=== PATIENT | female | born 1995 | race Caucasian/White ===

== ENCOUNTER 2020-08-26 19:51 | Observation (INO) | payer OTHER, SELFPAY ==
[2020-08-26] VITALS (8 sets, daily range): BP systolic 114–128; BP diastolic 55–89; PULSE 102–127; RESP 15–18; TEMP 36.6; O2SAT 98–100; BMI 21.2
--- NOTE | 2020-08-26 19:53 | USR_ITS ---
PROCEDURE INFORMATION: Exam: US , Limited Exam date and time: 08/26/2020 8:47 PM Age: 25 years old Clinical indication: complicated by abdominal or pelvic pain; Right lower quadrant; Second trimester; Gestational age or lmp: 15 w 0d; ; Additional info: Vag bleeding with TECHNIQUE: Imaging protocol: Real-time ultrasound of the maternal uterus with image documentation. Exam focused on the clinical indication. COMPARISON: No relevant prior studies available. FINDINGS: Gestation: Single live intrauterine gestation. heart rate: 171 bpm Presentation: Breech presentation. Placenta: Posterior placenta. Marginal placenta versus complete previa, suboptimally visualized. BIOMETRY: Gestational age (AUA): 15 weeks 0 days Estimated due date (AUA): 02/17/2021 (compares with 02/24/2021 based on LMP) Estimated weight: 113 g (weight percentile for gestational age not calculated) Biparietal diameter: 15 weeks 1 day Head circumference: 15 weeks 0 days Abdominal circumference: 15 weeks 0 days Femur length: 15 weeks 0 days MATERNAL: Cervix: Cervix is long and closed. Urinary bladder: The maternal bladder is unremarkable. US/US OB limited [id number] IMPRESSION: 1. Single live intrauterine . No acute complications. 2. Posterior marginal placenta versus placenta previa. Recommend attention to this finding on follow-up imaging.
--- NOTE | 2020-08-26 20:13 | USR_ITS ---
PROCEDURE INFORMATION: Exam: US Abdomen, Limited; Right Upper Quadrant Exam date and time: 08/26/2020 8:44 PM Age: 25 years old Clinical indication: Abdominal pain; Acute; ; Additional info: Rlq ruq pain, appy vs gb TECHNIQUE: Imaging protocol: US abdomen. Real time ultrasound with image documentation. Limited exam focused on the right upper quadrant. COMPARISON: No relevant prior studies available. FINDINGS: Liver: The liver parenchyma is unremarkable. Gallbladder: The gallbladder is normal. There are no stones. There is no wall thickening or pericholecystic fluid. Sonographic Haynes sign is negative. Common bile duct: The common bile duct is not identified. There is a duct measured on series 1, image 33 which is likely an intrahepatic duct. Pancreas: The visible portion of the pancreas is unremarkable. Right kidney: The right kidney is unremarkable. Aorta: The upper abdominal aorta is unremarkable. Portal venous: The portal vein is patent. US/US abdomen limited [id number] IMPRESSION: No cholelithiasis or evidence of cholecystitis.
[2020-08-26] MEDS: morphine 4 mg/mL SDV 1 mL 2 MG IVP (20:17)
[2020-08-26 20:19] LABS: Basophils # 0.1 10^3/uL (0.0-0.1); Basophils % 0.4 %; Eosinophils # 0.7 10^3/uL (0.0-0.8); Hematocrit 38.9 % (37.0-47.0); Hemoglobin 13.6 g/dL (11.5-15.3); Lymphocytes # 1.2 10^3/uL (0.8-4.8); Mean Corpuscular Hemoglobin 32.2 pg (28.0-34.0); Mean Corpuscular Volume 92.2 fL (81-99); Mean Platelet Volume 9.5 fL (7.4-10.4); Monocytes % 5.7 %; Neutrophils # 13.86 10^3/uL (1.8-7.7); Neutrophils % 82.5 %; Nucleated Red Blood Cells % 0 %; Platelet Count 267 10^3/cmm (130-400); Red Blood Count 4.22 10^6/uL (4.1-5.3); Red Cell Distribution Width 11.9 % (12.1-15.1); White Blood Count 16.8 10^3/uL (4.0-10.0)
[2020-08-26] MEDS: sodium chloride 0.9% 500 ML 999 ML IV (20:21)
--- NOTE | 2020-08-26 20:24 | ED_ITS ---
Documented by User: ALLAN Parada 08/27/20 02:42 HPI - Abdominal Pain General: Chief Complaint: Abdominal Pain Stated Complaint: 14wks preg. severe cramping Time Seen by Provider: 08/26/20 20:10 Source: patient Mode of arrival: wheelchair Limitations: no limitations History of Present Illness: HPI narrative: 25-year-old female patient who is from [place] here visiting family presents to the emergency department with 2- day onset of abdominal pain. She reports pain to the right lower quadrant and right upper quadrant, worse with movement. She reports hemorrhoid development has experienced some pain but abdominal pain is new. Denies vaginal bleeding, currently 14 weeks . Cared for by her [facility] in [facility] ([place], [place]). 1 para 0 AB 0, denies current problems with current . Has experienced several occasions of nausea and vomiting but considers it not bothersome. Denies history of diabetes hypertension. Last menstrual period 04/24/2020. Family h/o appendicitis, brother. MD elicited complaint: abdominal pain and flank pain Onset (ago): day(s) (2) Pain Consistency: intermittent Location: RUQ and RLQ Severity: moderate Pain scale (0-10): 6 Quality: aching and dull Radiation: RUQ, RLQ and suprapubic Exacerbating factors: movement Relieving factors: rest Associated Symptoms: Reports chills, nausea and vomiting; Denies constipation, dysuria, fever(s), hematochezia and hematemesis Review of Systems General: Reports: 10 or more systems reviewed and unremarkable except in HPI and below Const: Reports: chills; Denies: fever(s), body aches, fatigue or malaise Eyes: Denies: change in vision, blurry vision, eye discharge or eye redness ENMT: Denies: throat pain, dental pain, disequilibrium, nasal discharge, nasal congestion or nasal obstruction Card: Denies: chest pain, palpitations, irregular heart rhythm, dyspnea on exertion or orthopnea Resp: Denies: dyspnea, productive cough, non-productive cough, wheezing, hemoptysis or chest congestion GI: Reports: abdominal pain, nausea, vomiting and rectal pain (Due to hemorrhoid); Denies: hematemesis, constipation, pain on defecation or hematochezia : Denies: difficulty voiding, dysuria, urinary urgency, nocturia, oliguria or urinary incontinence Musc: Denies: neck pain, back pain, muscle cramps or muscle weakness Skin/Breast: Denies: rash, pruritus, erythema, changing lesions or changes in skin color Neuro: Reports: difficulty walking (due to abdominal pain); Denies: headache(s), numbness in extremities, weakness in extremities, vertigo or behavioral changes Psych: Denies: anxiety or depression Gabo/Lymph: Denies: easy bruising Physical Exam Const: COMMON NORMALS: no acute distress, patient oriented x3, healthy appearing and alert GENERAL APPEARANCE: cooperative, comfortable and well hydrated HENMT: COMMON NORMALS: normocephalic, Normal external nose present and moist oral mucous membranes HEAD & SCALP: normocephalic NOSE: Normal external nose present Eye: COMMON NORMALS: Equal, round and reactive pupils present and EOMs intact bilaterally GENERAL EYE: appearance normal, both eyes and all related structures PUPIL: Yes Equal, round and reactive pupils present Neck/C-Spine: COMMON NORMALS: full ROM and no lymphadenopathy GENERAL: Yes normal visual inspection and Yes trachea midline CERVICAL SPINE: Yes cervical ROM normal Lymph: LYMPHATIC: no lymphadenopathy noted Chest: COMMONS NORMALS: normal inspection of the chest Resp: COMMON NORMALS: normal respiratory effort and clear to auscultation bilaterally AUSCULTATION: clear to auscultation bilaterally Cardio: COMMON NORMALS: regular rhythm, S1 normal heart sound present and S2 normal heart sound present RHYTHM: regular rhythm HEART SOUNDS: S1 normal heart sound present and S2 normal heart sound present GI: COMMON NORMALS: Normal to inspection, nondistended, normoactive bowel sounds present and Soft to palpation INSPECTION: Yes normal to inspection, No abdominal wall ecchymosis, No abdominal distension, No visible herniation, No Laceration(s) present (GI), Yes gravid abdomen and Yes other (+ Psoas sign) PALPATION: Yes Soft to palpation and Yes Rebound tenderness present Details: McB urney's point, suprapubic and other (+ Haynes's) RECTAL EXAM: normal sphincter tone, External hemorrhoid(s) present (12 o'clock), no fissure noted, no laceration(s) noted and tenderness : COMMON NORMALS: Yes normal external appearance, Yes normal appearance of the vagina and Yes normal appearance of the cervix EXTERNAL FEMALE EXAM: Yes normal appearance of the urethra, No urethral discharge and No lesion SPECULUM EXAM - VAGINA: No erythematous, No lesion and Yes Vaginal discharge present Vaginal discharge present: white and yellow SPECULUM EXAM - CERVIX: Yes Cervical os closed, Yes Abnormal cervical discharge present and Yes Cervical tenderness present BIMANUAL EXAM - VAGINA & UTERUS: Yes Cervical tenderness present, Yes consistency normal and Yes enlarged BIMANUAL EXAM - ADNEXA, OTHER: Yes normal, No tender and Yes cul-de-sac tenderness RECTO-VAGINAL: cul-de-sac tenderness Back/Pelvis: COMMON NORMALS: thoracic and lumbar spine normal to inspection, no thoracic nor lumbar tenderness, thoraco-lumbar ROM normal and straight leg raise negative bilaterally GENERAL BACK: Yes CVA tenderness CVA tenderness: right Extremity: COMMON NORMALS: normal to inspection and capillary refill normal Neuro: COMMON NORMALS: patient oriented x3 and no focal motor deficits SENSORIUM/ORIENTATION: Yes alert Psych: COMMON NORMALS: mental status grossly normal, Normal thought process present and cooperative ACTIVITY/MOTOR BEHAVIOR: Yes appropriate eye contact THOUGHT PROCESS: Normal thought process present Skin: COMMON NORMALS: no rashes or lesions noted and turgor normal GENERAL SKIN EXAM: no rashes or lesions noted and turgor normal Course ED course: 25-year-old female patient presents to the emergency department with acute nausea vomiting, abdominal pain localized to the right side x2 days. Under the care of obstetrical services in [place]. She is currently here visiting relatives. White blood count elevated, 16.9 thousand, initial urinalysis with contamination, cath UA without UTI findings. Abdominal ultrasound negative for pyelonephritis, cholecystitis or other acute findings, appendix was not v isualized secondary to status. OB ultrasound with viable , 15 weeks, cervix closed. No vaginal bleeding, she is Rh-. Hypokalemia noted and treated significantly dehydrated with difficulty obtaining repeat urinalysis due to decreased urine output. Nausea improved with use of Zofran, morphine did improve pain. I discussed with patient and her spouse my conversation with Dr. Avila, she agrees with MRI abdomen and pelvis to rule out appendicitis as her brother was significantly ill during appendicitis episode. She also agrees to admission due to dehydration and pain control. Consultations: Consultation #1: Dr Avila, discussed with Dr. French unable to rule out appendicitis. Ultrasound abdomen without pyelonephritis, cholecystitis or other acute findings. Appendix was not visualized, OB ultrasound normal. Cervix closed. Patient dehydrated, continues with nausea with right lower quadrant pain. Agrees to admit for hydration and pain control, advised need for MRI abdomen and pelvis to rule out appendicitis, consult general surgery, consult hospitalist. Agrees to see patient in the morning. Time: 02:30 Vital Signs: Vital signs: Vital Signs Temperature 97.8 F 08/26/20 19:55 Pulse Rate 85 08/27/20 05:29 Respiratory Rate 17 08/27/20 05:53 Blood Pressure 103/61 08/27/20 05:29 Pulse Oximetry 98 08/27/20 05:53 MDM - Abdominal Pain Lab Data: Labs: Lab Results 08/26/20 08/26/20 08/26/20 Range/Units 20:10 20:10 20:10 WBC 16.8 H (4.0-10.0) 10^3/ uL RBC 4.22 (4.1-5.3) 10^6/u L Hgb 13.6 (11.5-15.3) g/dL Hct 38.9 (37.0-47.0) % MCV 92.2 (81-99) fL MCH 32.2 (28.0-34.0) pg MCHC 35.0 (30.0-36.0) g/dL RDW 11.9 L (12.1-15.1) % Plt Count 267 (130-400) 10^3/c mm MPV 9.5 (7.4-10.4) fL Neut % (Auto) 82.5 % Lymph % (Auto) 7.0 % [place] % (Auto) 5.7 % Eos % (Auto) 4.0 % Baso % (Auto) 0.4 % Neut # (Auto) 13.86 H (1.8-7.7) 10^3/u L Lymph # (Auto) 1.2 (0.8-4.8) 10^3/u L [place] # (Auto) 1.0 H (0.2-0.9) 10^3/u L Eos # (Auto) 0.7 (0.0-0.8) 10^3/u L Baso # (Auto) 0.1 (0.0-0.1) 10^3/u L Nucleated RBC % (a uto) 0 % Nucleated RBCs # 0.0 /100WBC Sodium 134 L (136-145) mmol/L Potassium 3.1 L (3.5-5.1) mmol/L Chloride 101 (98-107) mmol/L Carbon Dioxide 20 L (22-29) mmol/L Anion Gap 16.1 (5-19) BUN 7 (6-20) mg/dL Creatinine 0.4 L (0.5-0.9) mg/dL GFR Calculation 192.9 H (90-130) mL/min Glucose 102 (65-115) mg/dL Calculated Osmolal ity 276 L (285-295) mOsm/k g Calcium 9.8 (8.5-10.5) mg/dL Total Bilirubin 0.9 (0.15-1.2) mg/dL AST 27 (0-32) U/L ALT 29 (0-33) U/L Alkaline Phosphata se 94 (35-105) IU/L Total Protein 7.5 (6.6-8.7) g/dL Albumin 3.8 (3.5-5.2) g/dL Globulin 3.7 (1.3-4.6) g/dL Lipase 19 (13-60) U/L Ser , Renata [place]-Qnt 96485.00 mIU/mL Urine Color Urine Appearance Urine pH Ur Specific Gravit y Urine Protein Urine Glucose (UA) Urine Ketones Urine Blood Urine Nitrate Urine Bilirubin Prot Sulfosalicyli c Acd Urine Urobilinogen Ur Leukocyte Aviva ase Urine RBC Urine WBC Ur Squamous Epith Cells Ur Transition Epit h Cell Ur Renal Epithelia l Cell Calcium Oxalate Cr ystal Uric Acid Crystals Triple Phos Juliana ls Other Crystals Amorphous Sediment Urine Bacteria Hyaline Casts Fine Granular Cast s Coarse Granular Ca sts RBC Casts Other Casts Urine Mucus Urine Trichomonas Urine Yeast Urine Sperm Ur Oval Fat Bodies Serum Ketones Negative (Negative) Blood Type Rho(D) Type 08/26/20 08/26/20 08/27/20 Range/Units 20:30 20:48 01:41 WBC (4.0-10.0) 10^3/ uL RBC (4.1-5.3) 10^6/u L Hgb (11.5-15.3) g/dL Hct (37.0-47.0) % MCV (81-99) fL MCH (28.0-34.0) pg MCHC (30.0-36.0) g/dL RDW (12.1-15.1) % Plt Count (130-400) 10^3/c mm MPV (7.4-10.4) fL Neut % (Auto) % Lymph % (Auto) % [place] % (Auto) % Eos % (Auto) % Baso % (Auto) % Neut # (Auto) (1.8-7.7) 10^3/u L Lymph # (Auto) (0.8-4.8) 10^3/u L [place] # (Auto) (0.2-0.9) 10^3/u L Eos # (Auto) (0.0-0.8) 10^3/u L Baso # (Auto) (0.0-0.1) 10^3/u L Nucleated RBC % (a uto) % Nucleated RBCs # /100WBC Sodium (136-145) mmol/L Potassium (3.5-5.1) mmol/L Chloride (98-107) mmol/L Carbon Dioxide (22-29) mmol/L Anion Gap (5-19) BUN (6-20) mg/dL Creatinine (0.5-0.9) mg/dL GFR Calculation (90-130) mL/min Glucose (65-115) mg/dL Calculated Osmolal ity (285-295) mOsm/k g Calcium (8.5-10.5) mg/dL Total Bilirubin (0.15-1.2) mg/dL AST (0-32) U/L ALT (0-33) U/L Alkaline Phosphata se (35-105) IU/L Total Protein (6.6-8.7) g/dL Albumin (3.5-5.2) g/dL Globulin (1.3-4.6) g/dL Lipase (13-60) U/L Ser , Renata i-Qnt mIU/mL Urine Color Cancelled Yellow Urine Appearance Cancelled Clear Urine pH Cancelled 5 Ur Specific Gravit y Cancelled 1.015 Urine Protein Cancelled Neg Urine Glucose (UA) Cancelled Norm Urine Ketones Cancelled 1+ H Urine Blood Cancelled 2+ H Urine Nitrate Cancelled Negative Urine Bilirubin Cancelled Neg Prot Sulfosalicyli c Acd Cancelled Urine Urobilinogen Cancelled Norm Ur Leukocyte Aviva ase Cancelled Negative Urine RBC Cancelled 0-4 H Urine WBC Cancelled 0-4 H Ur Squamous Epith Cells Cancelled 15-25 H Ur Transition Epit h Cell Cancelled Ur Renal Epithelia l Cell Cancelled Calcium Oxalate Cr ystal Cancelled Uric Acid Crystals Cancelled Triple Phos Juliana ls Cancelled Other Crystals Cancelled Amorphous Sediment Cancelled Not Reportable Urine Bacteria Cancelled Trace Hyaline Casts Cancelled Fine Granular Cast s Cancelled Coarse Granular Ca sts Cancelled RBC Casts Cancelled Other Casts Cancelled Urine Mucus Cancelled 3+ Urine Trichomonas Cancelled Urine Yeast Cancelled Urine Sperm Cancelled Ur Oval Fat Bodies Cancelled Serum Ketones (Negative) Blood Type O Negative Rho(D) Type Negative Intrauterine present, approximately 14 weeks, Imaging Data ^: US OB: Radiologist's impression: [facility] [address] Ultrasound Report Signed Patient: Annie Watt Unit #: [id number] : 1995 Age/Sex: 25 / F ADM Date: 08/26/20 Loc: ER Room/Bed: Attending Dr: Ordering Provider/Ordering MD: Bri Beckford Date of Service: 08/26/20 Procedure(s): US OB limited [id number] Accession Number(s): [id number] Report Number: [id number] PROCEDURE INFORMATION: Exam: US , Limited Exam date and time: 08/26/2020 8:47 PM Age: 25 years old Clinical indication: complicated by abdominal or pelvic pain; Right lower quadrant; Second trimester; Gestational age or lmp: 15 w 0d; ; Additional info: Vag bleeding with TECHNIQUE: Imaging protocol: Real-time ultrasound of the maternal uterus with image documentation. Exam focused on the clinical indication. COMPARISON: No relevant prior studies available. FINDINGS: Gestation: Single live intrauterine gestation. heart rate: 171 bpm Presentation: Breech presentation. Placenta: Posterior placenta. Marginal placenta versus complete previa, suboptimally visualized. BIOMETRY: Gestational age (AUA): 15 weeks 0 days Estimated due date (AUA): 02/17/2021 (compares with 02/24/2021 based on LMP) Estimated weight: 113 g (weight percentile for gestational age not calculated) Biparietal diameter: 15 weeks 1 day Head circumference: 15 weeks 0 days Abdominal circumference: 15 weeks 0 days Femur length: 15 weeks 0 days MATERNAL: Cervix: Cervix is long and closed. Urinary bladder: The maternal bladder is unremarkable. US/US OB limited [id number] IMPRESSION: 1. Single live intrauterine . No acute complications. 2. Posterior marginal placenta versus placenta previa. Recommend attention to this finding on follow-up imaging. Dictated By: Clarence Lopez MD Signed By: Clarence Lopez MD Signed Date/Time: 08/26/202111 DD/ 11 US Vascular: Radiologist's impression: [address] [address] Ultrasound Report Signed Patient: Eva Watt #: [id number] : 1995Acct#:[id number] Age/Sex: 25 / FADM Date: 08/26/20 Loc: ERRoom/Bed: Attending Dr: Ordering Provider/Ordering MD: Bri Beckford Date of Service: 08/26/20 Procedure(s): US abdomen limited [id number] Accession Number(s): [id number] Report Number: [id number] PROCEDURE INFORMATION: Exam: US Abdomen, Limited; Right Upper Quadrant Exam date and time: 08/26/2020 8:44 PM Age: 25 years old Clinical indication: Abdominal pain; Acute; ; Additional info: Rlq ruq pain, appy vs gb TECHNIQUE: Imaging protocol: US abdomen. Real time ultrasound with image documentation. Limited exam focused on the right upper quadrant. COMPARISON: No relevant prior studies available. FINDINGS: Liver: The liver parenchyma is unremarkable. Gallbladder: The gallbladder is normal. There are no stones. There is no wall thickening or pericholecystic fluid. Sonographic Haynes sign is negative. Common bile duct: The common bile duct is not identified. There is a duct measured on series 1, image 33 which is likely an intrahepatic duct. Pancreas: The visible portion of the pancreas is unremarkable. Right kidney: The right kidney is unremarkable. Aorta: The upper abdominal aorta is unremarkable. Portal venous: The portal vein is patent. US/US abdomen limited [id number] IMPRESSION: No cholelithiasis or evidence of cholecystitis. Dictated By:Clarence Lopez MD Signed By:Clarence Lopez MDSigned Date/Time:08/26/202114 DD/ 14 Discharge Plan Discharge Patient Disposition: Placed in Observation Admit Provider: Da Avila Clinical Impression: Acute dehydration Abdominal pain Qualifiers: Abdominal location: right lower quadrant Qualified Code(s): R10.31 - Right lower quadrant pain Nausea and vomiting Qualifiers: Vomiting type: unspecified Vomiting Intractability: non-intractable Qualified Code(s): R11.2 - Nausea with vomiting, unspecified Sign Out Sign Out Data: Patient Sign Out occurred on 08/27/20 at 02:42. Patient's care was discussed, and care was transferred from ALLAN Parada to Sussy Jones. Sign Out Comment: MRI abdomen and pelvis pending, transfer of care due to end of shift, plan for admission due to dehydration and pain control due to abdominal pain, possible appendicitis. Last updated by Bri Beckford ARNP at 08/27/20 02:40 Coding Level of Care Code ED Store Management Trainee for Chg Fwd Exam Comprehensive Documented by User: Sussy Jones 08/27/20 06:03 HPI - Abdominal Pain General: Chief Complaint: Abdominal Pain Stated Complaint: 14wks preg. severe cramping Time Seen by Provider: 08/26/20 20:10 Course Vital Signs: Vital signs: Vital Signs Temperature 97.8 F 08/26/20 19:55 Pulse Rate 85 08/27/20 05:29 Respiratory Rate 17 08/27/20 05:53 Blood Pressure 103/61 08/27/20 05:29 Pulse Oximetry 98 08/27/20 05:53 MDM - Abdominal Pain MDM Narrative: Medical decision making narrative: 0325 -patient care turned over to me at change of shift from Bri Calabrese APN. Please see her note for history, physical exam and medical decision-making notes. Patient complains of nausea vomiting worse for the past 2 days in comparison to the earlier in her . Her abdominal pain began approximately 12 hours ago and she describes it as sharp, intermittent and lasting up to 30 seconds. She states she has had little pain since been giving pain medication here. She does state that movement makes her pain worse. Area located is in the mid to upper right side of her abdomen. Patient still does feel nauseated. Patient's white count is elevated and there is no evidence of UTI, cholecystitis or other problem. The case has been reviewed with Dr. Avila and he is agreeable to MRI and admission for observation with consultation by general surgery. Dr. Shetty notified of consultation. Patient will come back to the ER from MRI but shortly thereafter should go to the floor. Oncoming ER doctor will follow up on MRI results if not returned before I leave and they will be communicated to the general surgeon and Dr. Avila. Lab Data: Attestation: I reviewed the patient's lab results. Labs: Lab Results 08/26/20 08/26/20 08/26/20 Range/Units 20:10 20:10 20:10 WBC 16.8 H (4.0-10.0) 10^3/ uL RBC 4.22 (4.1-5.3) 10^6/u L Hgb 13.6 (11.5-15.3) g/dL Hct 38.9 (37.0-47.0) % MCV 92.2 (81-99) fL MCH 32.2 (28.0-34.0) pg MCHC 35.0 (30.0-36.0) g/dL RDW 11.9 L (12.1-15.1) % Plt Count 267 (130-400) 10^3/c mm MPV 9.5 (7.4-10.4) fL Neut % (Auto) 82.5 % Lymph % (Auto) 7.0 % [place] % (Auto) 5.7 % Eos % (Auto) 4.0 % Baso % (Auto) 0.4 % Neut # (Auto) 13.86 H (1.8-7.7) 10^3/u L Lymph # (Auto) 1.2 (0.8-4.8) 10^3/u L [place] # (Auto) 1.0 H (0.2-0.9) 10^3/u L Eos # (Auto) 0.7 (0.0-0.8) 10^3/u L Baso # (Auto) 0.1 (0.0-0.1) 10^3/u L Nucleated RBC % (a uto) 0 % Nucleated RBCs # 0.0 /100WBC Sodium 134 L (136-145) mmol/L Potassium 3.1 L (3.5-5.1) mmol/L Chloride 101 (98-107) mmol/L Carbon Dioxide 20 L (22-29) mmol/L Anion Gap 16.1 (5-19) BUN 7 (6-20) mg/dL Creatinine 0.4 L (0.5-0.9) mg/dL GFR Calculation 192.9 H (90-130) mL/min Glucose 102 (65-115) mg/dL Calculated Osmolal ity 276 L (285-295) mOsm/k g Calcium 9.8 (8.5-10.5) mg/dL Total Bilirubin 0.9 (0.15-1.2) mg/dL AST 27 (0-32) U/L ALT 29 (0-33) U/L Alkaline Phosphata se 94 (35-105) IU/L Total Protein 7.5 (6.6-8.7) g/dL Albumin 3.8 (3.5-5.2) g/dL Globulin 3.7 (1.3-4.6) g/dL Lipase 19 (13-60) U/L Ser , Renata i-Qnt 54359.00 mIU/mL Urine Color Urine Appearance Urine pH Ur Specific Gravit y Urine Protein Urine Glucose (UA) Urine Ketones Urine Blood Urine Nitrate Urine Bilirubin Prot Sulfosalicyli c Acd Urine Urobilinogen Ur Leukocyte Aviva ase Urine RBC Urine WBC Ur Squamous Epith Cells Ur Transition Epit h Cell Ur Renal Epithelia l Cell Calcium Oxalate Cr ystal Uric Acid Crystals Triple Phos Juliana ls Other Crystals Amorphous Sediment Urine Bacteria Hyaline Casts Fine Granular Cast s Coarse Granular Ca sts RBC Casts Other Casts Urine Mucus Urine Trichomonas Urine Yeast Urine Sperm Ur Oval Fat Bodies Serum Ketones Negative (Negative) Blood Type Rho(D) Type 08/26/20 08/26/20 08/27/20 Range/Units 20:30 20:48 01:41 WBC (4.0-10.0) 10^3/ uL RBC (4.1-5.3) 10^6/u L Hgb (11.5-15.3) g/dL Hct (37.0-47.0) % MCV (81-99) fL MCH (28.0-34.0) pg MCHC (30.0-36.0) g/dL RDW (12.1-15.1) % Plt Count (130-400) 10^3/c mm MPV (7.4-10.4) fL Neut % (Auto) % Lymph % (Auto) % [place] % (Auto) % Eos % (Auto) % Baso % (Auto) % Neut # (Auto) (1.8-7.7) 10^3/u L Lymph # (Auto) (0.8-4.8) 10^3/u L [place] # (Auto) (0.2-0.9) 10^3/u L Eos # (Auto) (0.0-0.8) 10^3/u L Baso # (Auto) (0.0-0.1) 10^3/u L Nucleated RBC % (a uto) % Nucleated RBCs # /100WBC Sodium (136-145) mmol/L Potassium (3.5-5.1) mmol/L Chloride (98-107) mmol/L Carbon Dioxide (22-29) mmol/L Anion Gap (5-19) BUN (6-20) mg/dL Creatinine (0.5-0.9) mg/dL GFR Calculation (90-130) mL/min Glucose (65-115) mg/dL Calculated Osmolal ity (285-295) mOsm/k g Calcium (8.5-10.5) mg/dL Total Bilirubin (0.15-1.2) mg/dL AST (0-32) U/L ALT (0-33) U/L Alkaline Phosphata se (35-105) IU/L Total Protein (6.6-8.7) g/dL Albumin (3.5-5.2) g/dL Globulin (1.3-4.6) g/dL Lipase (13-60) U/L Ser , Renata i-Qnt mIU/mL Urine Color Cancelled Yellow Urine Appearance Cancelled Clear Urine pH Cancelled 5 Ur Specific Gravit y Cancelled 1.015 Urine Protein Cancelled Neg Urine Glucose (UA) Cancelled Norm Urine Ketones Cancelled 1+ H Urine Blood Cancelled 2+ H Urine Nitrate Cancelled Negative Urine Bilirubin Cancelled Neg Prot Sulfosalicyli c Acd Cancelled Urine Urobilinogen Cancelled Norm Ur Leukocyte Aviva ase Cancelled Negative Urine RBC Cancelled 0-4 H Urine WBC Cancelled 0-4 H Ur Squamous Epith Cells Cancelled 15-25 H Ur Transition Epit h Cell Cancelled Ur Renal Epithelia l Cell Cancelled Calcium Oxalate Cr ystal Cancelled Uric Acid Crystals Cancelled Triple Phos Juliana ls Cancelled Other Crystals Cancelled Amorphous Sediment Cancelled Not Reportable Urine Bacteria Cancelled Trace Hyaline Casts Cancelled Fine Granular Cast s Cancelled Coarse Granular Ca sts Cancelled RBC Casts Cancelled Other Casts Cancelled Urine Mucus Cancelled 3+ Urine Trichomonas Cancelled Urine Yeast Cancelled Urine Sperm Cancelled Ur Oval Fat Bodies Cancelled Serum Ketones (Negative) Blood Type O Negative Rho(D) Type Negative Imaging Data ^: MR Abdomen/Pelvis: Radiologist's impression: [place] [address] Magnetic Resonance Report Signed Patient: Annie Watt Unit #: [id number] : 1995 Age/Sex: 25 / F ADM Date: 08/27/20 Loc: [facility] Room/Bed: [facility] Attending Dr: Da Avila MD Ordering Provider/Ordering MD: Bri Beckford Date of Service: 08/27/20 Procedure(s): MR abdomen [facility] [address] Accession Number(s): [id number] Report Number: [id number] PROCEDURE INFORMATION: Exam: MR Abdomen Without Contrast Exam date and time: 08/27/2020 2:26 AM Age: 25 years old Clinical indication: Abdominal pain; Acute; Additional info: Rlq pain, R/O appendicitis TECHNIQUE: Imaging protocol: MR of the abdomen without contrast. COMPARISON: US abdomen limited [id number] 08/26/2020 8:34 PM FINDINGS: Liver: No mass. Gallbladder and bile ducts: Unremarkable. No stones. No ductal dilation. Pancreas: Unremarkable. No ductal dilation. Spleen: Unremarkable. No splenomegaly. Adrenals: Unremarkable. No mass. Kidneys and ureters: Unremarkable. No solid mass. No hydronephrosis. Stomach and bowel: Visualized stomach and intestines are unremarkable. Appendix: The appendix is visualized and is normal in configuration. Intraperitoneal space: No free fluid. Arteries: No abdominal aortic aneurysm. Reproductive: The gravid uterus is seen. Bones/joints: Unremarkable. Soft tissues: Unremarkable. MR/MR abdomen wo con [id number] IMPRESSION: There are no acute abdominal findings. Dictated By: Rock Jaeger MD Signed By: Rock Jaeger MD Signed Date/Time: 08/27/20558 DD/ 7 Discharge Plan Discharge Patient Disposition: Placed in Observation Admit Provider: Da Avila Clinical Impression: Acute dehydration Abdominal pain Qualifiers: Abdominal location: right lower quadrant Qualified Code(s): R10.31 - Right lower quadrant pain Nausea and vomiting Qualifiers: Vomiting type: unspecified Vomiting Intractability: non-intractable Qualified Code(s): R11.2 - Nausea with vomiting, unspecified Sign Out Sign Out Data: Patient Sign Out occurred on 08/27/20 at 02:42. Patient's care was discussed, and care was transferred from ALLAN Parada to Sussy Jones. Sign Out Comment: MRI abdomen and pelvis pending, transfer of care due to end of shift, plan for admission due to dehydration and pain control due to abdominal pain, possible appendicitis. Last updated by Bri Beckford ARNP at 08/27/20 02:40 Coding Level of Care Code ED Store Management Trainee for [facility] Fwd Exam Comprehensive
[2020-08-26 21:00] LABS: Alanine Aminotransferase 29 U/L (0-33); Albumin Level 3.8 g/dL (3.5-5.2); Alkaline Phosphatase 94 IU/L (35-105); Anion Gap 16.1 (5-19); Aspartate Amino Transferase 27 U/L (0-32); Blood Urea Nitrogen 7 mg/dL (6-20); Calcium 9.8 mg/dL (8.5-10.5); Carbon Dioxide 20 mmol/L (22-29); Chloride 101 mmol/L (98-107); Globulin 3.7 g/dL (1.3-4.6); Glomerular Filtration Rate 192.9 mL/min (90-130); Glucose 102 mg/dL (65-115); Osmolality Calculated 276 mOsm/kg (285-295); Potassium 3.1 mmol/L (3.5-5.1); Sodium 134 mmol/L (136-145); Total Bilirubin 0.9 mg/dL (0.15-1.2); Total Protein 7.5 g/dL (6.6-8.7)
[2020-08-26] MEDS: ondansetron 2 mg/ML SDV 2 mL 4 MG IVP (21:04)
[2020-08-26] MEDS: morphine 4 mg/mL SDV 1 mL IVP (21:04)
[2020-08-26 21:05] LABS: Ketone (Acetest) Serum Negative (Negative)
[2020-08-26] MEDS: cefTRIAXone 1,000 MG in sodium chloride 0.9% (plus) 50 ML 100 MG IV (21:05)
[2020-08-26 21:14] LABS: Lipase 19 U/L (13-60)
[2020-08-26] MEDS: potassium chloride ER 20 mEq Tablet 40 MEQ PO (21:23)
[2020-08-26] MEDS: phenyleph-mineral oil-petrolat Oint 28 gm 1 APPLIC TOPICAL (23:57)
--- NOTE | 2020-08-26 23:59 | PC.NURSE ---
report given to anitha hackett
[2020-08-27] VITALS (13 sets, daily range): BP systolic 101–109; BP diastolic 58–67; PULSE 80–98; RESP 15–18; TEMP 36.7–36.8; O2SAT 98–99; BMI 21.2
[2020-08-27] MEDS: morphine 4 mg/mL SDV 1 mL IVP ×2 (00:40→05:53)
[2020-08-27] MEDS: sodium chloride 0.9% 1,000 ML 999 ML IV (00:41)
[2020-08-27 01:56] LABS: Glucose Urine UA Norm (Normal); Ketones Urine 1+ (Negative); Protein Urine Neg (Negative); Specific Gravity, Urine 1.015 (1.005-1.030); Urine Appearance Clear (CLEAR); Urine Color Yellow (Yellow); pH Urine 5 (5-7)
[2020-08-27 01:58] LABS: Bilirubin Urine Neg (Negative); Blood Urine 2+ (Negative); Leukocyte Esterase Urine Negative (Negative); Nitrate Urine Negative (Negative); Urobilinogen Urine Norm (Negative)
[2020-08-27 02:00] LABS: Add Urine Microscopic? YES
[2020-08-27 02:01] LABS: RBC Urine 0-4 /hpf (0-2); Squamous Epithelial Cell Urine 15-25 /hpf (0-5); WBC Urine 0-4 /hpf (0-5)
[2020-08-27 02:02] LABS: Add Urine Culture? No; Bacteria Urine TRACE /hpf; Mucus Urine 3+ /hpf
--- NOTE | 2020-08-27 02:25 | MRR_ITS ---
PROCEDURE INFORMATION: Exam: MR Abdomen Without Contrast Exam date and time: 08/27/2020 2:26 AM Age: 25 years old Clinical indication: Abdominal pain; Acute; Additional info: Rlq pain, R/O appendicitis TECHNIQUE: Imaging protocol: MR of the abdomen without contrast. COMPARISON: US abdomen limited [id number] 08/26/2020 8:34 PM FINDINGS: Liver: No mass. Gallbladder and bile ducts: Unremarkable. No stones. No ductal dilation. Pancreas: Unremarkable. No ductal dilation. Spleen: Unremarkable. No splenomegaly. Adrenals: Unremarkable. No mass. Kidneys and ureters: Unremarkable. No solid mass. No hydronephrosis. Stomach and bowel: Visualized stomach and intestines are unremarkable. Appendix: The appendix is visualized and is normal in configuration. Intraperitoneal space: No free fluid. Arteries: No abdominal aortic aneurysm. Reproductive: The gravid uterus is seen. Bones/joints: Unremarkable. Soft tissues: Unremarkable. MR/MR abdomen wo con [id number] IMPRESSION: There are no acute abdominal findings.
[2020-08-27] MEDS: hydrocortisone 2.5% cream 28 gm 1 APPLIC TOPICAL (03:55)
[2020-08-27] MEDS: metoclopramide 5 mg/mL SDV 2 mL 10 MG IVP (04:40)
[2020-08-27] MEDS: HYDROcodone-acetaminophen 5-325 mg Tablet 1 TAB PO (07:20)
[2020-08-27] MEDS: lactated ringers 1,000 ML 125 ML IV ×2 (07:21→11:48)
--- NOTE | 2020-08-27 09:43 | PM.OBGYHP ---
Providers/Chief Complaint Admitting Physician: Da Avila MD Chief Complaint: 14wks preg. severe cramping HPI FUNERAL SERVICE PRACTITIONER/EMBALMER History of Present Illness 25-year-old female with an EGA at 14+1 weeks who is from [place] here visiting family presents to the emergency department with 2-day onset of abdominal pain. She reports pain to the right lower quadrant and right upper quadrant, worse with movement. She reports hemorrhoid development has experienced some pain but abdominal pain is new. Denies vaginal bleeding, currently 14 weeks . Present Details : 1 Para: 0 Review of Systems General: Reports: 10 or more systems reviewed and unremarkable except in HPI and below Const: Reports: chills; Denies: fever(s), body aches, fatigue or malaise Eyes: Denies: change in vision, blurry vision, eye discharge or eye redness ENMT: Denies: throat pain, dental pain, disequilibrium, nasal discharge, nasal congestion or nasal obstruction Card: Denies: chest pain, palpitations, irregular heart rhythm, dyspnea on exertion or orthopnea Resp: Denies: dyspnea, productive cough, non-productive cough, wheezing, hemoptysis or chest congestion GI: Reports: abdominal pain, nausea, vomiting and rectal pain (Due to hemorrhoid); Denies: hematemesis, constipation, pain on defecation or hematochezia : Denies: difficulty voiding, dysuria, urinary frequency, urinary urgency, nocturia, oliguria, urinary incontinence, genital pruritis, vaginal bleeding or vaginal discharge Musc: Denies: neck pain, back pain, muscle cramps or muscle weakness Skin/Breast: Denies: rash, pruritus, erythema, changing lesions or changes in skin color Neuro: Reports: difficulty walking (due to abdominal pain); Denies: headache(s), numbness in extremities, weakness in extremities, vertigo or behavioral changes Psych: Denies: anxiety or depression Gabo/Lymph: Denies: easy bruising Medications/Allergies Home Medications Medication Instructions Recorded Confirmed Last Taken Type 1 mg PO DAILY@0800 08/26/20 08/26/20 08/23/20 History Allergies Allergy/AdvReac Type Severity Reaction Status Date / Time No Known Allergies Allergy Unverified 08/26/20 20:22 Vitals/I&O/Wt Last Vital Signs Temp 98.1 F 08/27/20 06:20 Pulse 92 08/27/20 06:30 Resp 16 08/27/20 06:30 BP 105/63 08/27/20 06:30 Pulse Ox 99 08/27/20 06:21 08/26/20 08/27/20 08/27/20 22:59 06:59 14:59 Intake Total 1550 / 1550 Balance 1550 / 1550 Weight last 48 hrs Weight 63.503 kg Weight 63.503 kg Physical Exam Const: COMMON NORMALS: no acute distress, patient oriented x3 and well nourished GENERAL APPEARANCE: cooperative and well kempt Chest: CHEST: Yes Symmetrical chest wall rise Resp: COMMON NORMALS: normal respiratory effort Cardio: COMMON NORMALS: regular rate and regular rhythm RATE: regular rate RHYTHM: regular rhythm GI: COMMON NORMALS: Soft to palpation INSPECTION: Yes gravid abdomen (14 weeks) AUSCULTATION: Yes normoactive bowel sounds PALPATION: Yes Soft to palpation, No Tenderness to palpation present (GI), No Guarding due to palpation present (GI), No Rigid due to palpation and No Rebound tenderness present PERCUSSION: normal to percussion : COMMON NORMALS: Yes no CVA tenderness UTERUS PALPATION: No Uterus tender Extremity: COMMON NORMALS: normal to inspection; negative for no pedal edema Neuro: COMMON NORMALS: patient oriented x3 and moves all extremities SPEECH: speech normal GAIT: Yes Normal gait present Psych: COMMON NORMALS: mental status grossly normal, Normal thought process present and speech normal APPEARANCE: Yes grossly normal and Yes well kempt ATTITUDE: Yes calm and Yes engaged ACTIVITY/MOTOR BEHAVIOR: Yes appropriate eye contact SPEECH: Yes normal speech MOOD & AFFECT: Yes euthymic mood THOUGHT PROCESS: Normal thought process present Skin: COMMON NORMALS: no rashes or lesions noted GENERAL SKIN EXAM: no rashes or lesions noted Urinary Catheter Management^: Bernard: Cath Placed During This Visit: yes Urinary Catheter Date of Insertion: 08/27/20 Data : 08/26/20 20:10 08/26/20 20:10 Micro: Microbiology 08/26/20 20:55 Wet Prep - Final Vaginal 08/26/20 20:40 Blood Culture - Preliminary Blood SPECIMEN COLLECTED 08/26/20 20:35 Blood Culture - Preliminary Blood SPECIMEN COLLECTED A&P Assessment and plan (1) Abdominal pain: Patient admitted from the ER for the suspicion with possible appendicitis. Examination this morning, abdomen is soft, no guarding, no rebound tenderness. The patient refers feeling better last night. Awaiting consult from general surgery. Status: Acute Qualifiers: Abdominal location: right lower quadrant Qualified Code(s): R10.31 - Right lower quadrant pain (2) : 26-year-old female with an EGA at 14 weeks +1 day with an SHELIA of 02/24/2021. Ultrasound at the ERshows an intrauterine with fetus at 15+1, history of placenta in breech presentation. Status: Acute Attestations Medical Necessity Statement*: my professional opinion for admitting diagnosis Coding Level of Care Code Acute Inpatient Nursing Aide for [facility] Diagnoses Abdominal pain R10.31 Abdominal location: right lower quadrant Z34.90
--- NOTE | 2020-08-27 12:28 | P.CONIM_ITS ---
Providers/Reason For Consult Consulting Physican/Specialty*: Dr. Avila Reason for Consult*: Abdominal pain Attending Physician: Da Avila MD History of Present Illness History of Present Illness Annie Watt is a 25 year old female who is 14 weeks G1, P0 who presented to the ER yesterday with 2-day history of nausea and vomiting. Patient states that she is not been able to keep water down over the last 2 days though she did have some nausea since start of her . Patient denies any fevers chills constipation or diarrhea. She states that yesterday she started having abdominal pain mainly in the epigastric region and the right lower quadrant, does not radiate, no aggravating or relieving factors. Patient denies any history of peptic ulcer disease or acid reflux in the past. Her primary complaint other than the abdominal pain is hemorrhoids Review of Systems General: Reports: 10 or more systems reviewed and unremarkable except in HPI and below Meds/Allergies Home Medications and Allergies Home Medications Medication Instructions Recorded Confirmed Last Taken Type 1 mg PO DAILY@0800 08/26/20 08/26/20 08/23/20 History Allergies Allergy/AdvReac Type Severity Reaction Status Date / Time No Known Allergies Allergy Unverified 08/26/20 20:22 Current Medications Current Medications Generic Name Dose Route Start Last Admin Trade Name Freq PRN Reason Stop Dose Admin Hydrocodone Bitart/Acetaminophen 1 tab 08/27/20 06:27 08/27/20 07:20 Hydrocodone-Acetaminophen 5-325 Mg Tablet PO 1 tab Q4H PRN Administration MODERATE PAIN Lactated Ringer's 1,000 mls @ 125 mls/hr 08/27/20 06:30 08/27/20 11:48 Lactated Ringers IV 125 mls/hr .Q8H BRIDGET Administration Phenyleph/Shark Oil/Min Oil/Petrol 1 applic 08/26/20 23:45 08/26/20 23:57 Phenyleph-Mineral Oil-Petrolat Oint 28 Gm TOPICAL 1 package ONCE BRIDGET Administration PFSH Acute PFSH: Surgical History H/O wisdom tooth extraction Female Reproductive History: : 1 Vitals/I&O/Wt Last Vital Signs Temp 98.2 F 08/27/20 10:15 Pulse 91 08/27/20 10:15 Resp 16 08/27/20 10:15 BP 107/67 08/27/20 10:15 Pulse Ox 98 08/27/20 08:00 08/26/20 08/27/20 08/27/20 22:59 06:59 14:59 Intake Total 1550 / 1550 556.25 / 556.25 Output Total 600 / 600 Balance 1550 / 1550 -43.75 / -43.75 Weight last 48 hrs Weight 140 lb Weight 140 lb Physical Exam Narrative: EXAM NARRATIVE: HEENT: Normocephalic Eye: Sclera /conjunctiva normal Abdomen: Soft to palpation, tender epigastric region and right lower quadrant, no guarding or rigidity Neurological: Oriented to place person and time Skin: Intact, no lesions appreciated on gross exam Urinary Catheter Management^: Bernard: Cath Placed During This Visit: yes Urinary Catheter Date of Insertion: 08/27/20 Data Micro: Micro: Microbiology 08/26/20 20:55 Wet Prep - Final Vaginal 08/26/20 20:40 Blood Culture - Pr eliminary Blood SPECIMEN [facility] 08/26/20 20:35 Blood Culture - Pr eliminary Blood SPECIMEN [facility] A&P Assessment and plan (1) Abdominal pain: 25-year-old female G1, P0 14 weeks who presents with abdominal pain, nausea and vomiting. The pain in the epigastric region could be related to gastritis. Start Protonix 40 mg daily Right lower quadrant pain: MRI was negative for acute pathology though appendicitis is still possible. 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
[2020-08-27 13:16] LABS: Basophils # 0.1 10^3/uL (0.0-0.1); Basophils % 0.3 %; Eosinophils # 0.5 10^3/uL (0.0-0.8); Eosinophils % 3.1 %; Hemoglobin 12.1 g/dL (11.5-15.3); Lymphocytes # 0.8 10^3/uL (0.8-4.8); Lymphocytes % 5.4 %; Mean Corpuscular HGB Conc 34.6 g/dL (30.0-36.0); Mean Corpuscular Hemoglobin 32.4 pg (28.0-34.0); Mean Corpuscular Volume 93.6 fL (81-99); Mean Platelet Volume 9.3 fL (7.4-10.4); Monocytes # 0.8 10^3/uL (0.2-0.9); Monocytes % 5.4 %; Neutrophils # 12.59 10^3/uL (1.8-7.7); Neutrophils % 85.4 %; Nucleated Red Blood Cells % 0 %; Platelet Count 232 10^3/cmm (130-400); Red Blood Count 3.74 10^6/uL (4.1-5.3); Red Cell Distribution Width 11.9 % (12.1-15.1); White Blood Count 14.7 10^3/uL (4.0-10.0)
[2020-08-27] MEDS: pantoprazole DR 40 mg Tablet PO (13:48)
--- NOTE | 2020-08-27 13:51 | PC.NURSE ---
1340 LEFT JACQUELINE PEREZ IN PACU AND ASKED HER TO TELL DR. DAVIS THAT PATIENTS LABS ARE BACK AND THAT SHE TOLERATED CLEAR LIQUIDS WELL AND IS PAIN FREE AT THIS TIME.
== END 2020-08-27 17:25 | disposition home or self-care (01) ==
LOC: ER 08-27 03:28 → OBGYN 08-27 05:39
PROVIDERS: Nurse Practitioner Family; Surgery; Admitting Provider Obstetrics & Gynecology; Emergency Provider Emergency Medicine; Visit Provider Obstetrics & Gynecology
DX: O26.892 Other specified pregnancy related conditions, second trimester (principal); R10.31 Right lower quadrant pain; O21.9 Vomiting of pregnancy, unspecified; Z3A.14 14 weeks gestation of pregnancy; O99.280 Endocrine, nutritional and metabolic diseases complicating pregnancy, unspecified trimester; E86.0 Dehydration
CPT/HCPCS: 12345; 36415; 51702; 74181; 76705; 76805; 76815; 76817; 80053; 81001; 82009; 83690; 84702; 85025; 86900; 87040; 87210; 87491; 87591; 87661; 96361; 96365; 96375; 96376; 99211; 99283; 99285; G0378; J0696; J2270; J2405; J2765; J7030; J7040